=== PATIENT | male | born 1975 | race Caucasian/White ===

== ENCOUNTER 2017-12-23 22:26 | Emergency (ER) | payer SELFPAY ==
[2017-12-23] MEDS ORDERED: Ibuprofen 800 MG TAB ONE (23:15)
--- NOTE | 2017-12-23 23:39 | RAD ---
RIGHT SHOULDER THREE VIEWS: 12/23/17 HISTORY: 42-year-old male with history of right shoulder pain following an injury. Arthrosis changes are noted involving the right AC joint. No evidence for acute fracture or dislocati on. IMPRESSION: Marked arthrosis right AC joint without acute fracture or dislocation. POS: [facility]
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
== END 2017-12-24 00:08 | disposition home or self-care (01) ==
LOC: ERS 22:26
DX: M25.461 Effusion, right knee (principal); M25.571 Pain in right ankle and joints of right foot; M25.511 Pain in right shoulder